=== PATIENT | male | born 1950 | race Caucasian/White ===

== ENCOUNTER 2020-12-22 10:46 | Emergency (ER) | payer MEDICARE, OTHER ==
[~2020-12-22 10:46] MED LIST: ZPAK PO
== END 2020-12-22 12:47 | disposition home or self-care (01) ==
LOC: FER 10:46
DX: N40.1 Benign prostatic hyperplasia with lower urinary tract symptoms (principal); R33.8 Other retention of urine; F17.290 Nicotine dependence, other tobacco product, uncomplicated; Z88.2 Allergy status to sulfonamides
CPT/HCPCS: 87088